=== PATIENT | male | born 1980 | race Caucasian/White ===

== ENCOUNTER 2018-10-03 03:43 | Emergency (ER) | payer OTHER ==
[~2018-10-03] VITALS: Ht 180.3 cm; Wt 108.9 kg
[~2018-10-03 03:43] MED LIST: HYDROCODONE-APA1 TA1 PO
[2018-10-03] MEDS ORDERED: FISH OIL 1,001000 M2 PO (03:53)
[2018-10-03] MEDS ORDERED: UNICOMPLEX M TA1 TA1 PO (03:53)
[2018-10-03] MEDS ORDERED: HYDROCHLOROTHIA25 M2 PO (03:53)
[2018-10-03] MEDS ORDERED: DIPHENHIST50 MG PO (04:01)
[2018-10-03] MEDS ORDERED: PREDNISONE50 MG PO (04:01)
[2018-10-03 04:09] VITALS: BP 161/101
== END 2018-10-03 04:09 | disposition home or self-care (01) ==
LOC: M.ERS 03:43
DX: T63.481A Toxic effect of venom of other arthropod, accidental (unintentional), initial encounter (principal); Z90.49 Acquired absence of other specified parts of digestive tract; Z90.89 Acquired absence of other organs; Z98.890 Other specified postprocedural states; Z91.013 Allergy to seafood; Y92.89 Other specified places as the place of occurrence of the external cause

== ENCOUNTER 2019-08-07 16:23 | Emergency (ER) | payer OTHER ==
[~2019-08-07] VITALS: Ht 180.3 cm; Wt 102.1 kg
[~2019-08-07 16:23] MED LIST changes: +DIPHENHIST50 MG PO; +FISH OIL 1,001000 M2 PO; +HYDROCHLOROTHIA25 M2 PO; +PREDNISONE50 MG PO; +UNICOMPLEX M TA1 TA1 PO
[2019-08-07] MEDS ORDERED: LISINOPRIL2.5 MG PO (16:41)
[2019-08-07 16:56] LABS: ABSOLUTE EOSINOPHILS 0.2 thou/uL (0.0-0.7); ABSOLUTE MONOCYTES 0.7 thou/uL (0.0-1.2); ABSOLUTE NEUTROPHILS 6.8 thou/uL (1.6-8.1); BASOPHILS 0.5 %; EOSINOPHILS 1.8 %; HEMATOCRIT 47.6 % (42.0-52.0); HEMOGLOBIN 16.6 gm/dL (14.0-18.0); LYMPHOCYTES 20.7 %; MCH 30.2 pg (26.0-34.0); MCHC 34.8 g/dL (28.0-37.0); MCV 86.6 fL (80.0-100.0); MPV 8.1 fl. (7.2-11.1); NUCLEATED RBCS 0 /100WBC; PLATELET COUNT* 338 thou/uL (150-400); RDW-CV 13.6 % (10.5-14.5); WBC 9.7 thou/uL (4.0-11.0)
[2019-08-07 17:14] LABS: CALCIUM 9.6 mg/dL (8.5-10.1); CREATININE 1.2 mg/dL (0.6-1.3); POTASSIUM 3.9 mmol/L (3.5-5.1)
[2019-08-07 17:23] LABS: TOTAL BILIRUBIN 0.7 mg/dL (<0.1-1.0); TOTAL PROTEIN 7.8 g/dL (6.4-8.2)
[2019-08-07 17:46] LABS: URINE BILIRUBIN NEGATIVE (Negative); URINE BLOOD NEGATIVE (Negative); URINE CLARITY CLEAR; URINE COLOR YELLOW; URINE GLUCOSE-RANDOM NEGATIVE (Negative); URINE KETONES NEGATIVE (Negative); URINE LEUKOCYTES-REFLEX NEGATIVE (Negative); URINE NITRITE-REFLEX NEGATIVE (Negative); URINE PROTEIN NEGATIVE (Negative); URINE UROBILINOGEN 0.2 E.U./dl (0.2-1.0)
[2019-08-07] MEDS ORDERED: ONDANSETRON ODT4 MG PO (18:52)
[2019-08-07] MEDS ORDERED: NORCO 5-325 TA1 EAC1 PO (18:52)
[2019-08-07 19:14] VITALS: BP 143/92
--- NOTE | 2019-08-08 10:15 | EKG ---
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 : 1980 Requested By: Ca Hutchins Order Number: [id number] MD: Silviano Quintero Measurements Intervals [place] Rate: 98 P: 49 ID: [id number] QRS: 24 QRSD: 90 T: 42 QT: 337 QTc: 431 Interpretive Statements Sinus rhythm with VPCs No previous ECG available for comparison Electronically Signed On 08-08-2019 10:14:57 CDT by Silviano Quintero [email or web address] <ELECTRONICALLY SIGNED> By: Angel Quintero MD, [facility] 08/08/19 [phone] [id number] Angel Quintero MD, [facility] /EPI
== END 2019-08-07 19:15 | disposition home or self-care (01) ==
LOC: M.ERS 16:23
PROVIDERS: Physician Assistant
DX: K85.90 Acute pancreatitis without necrosis or infection, unspecified (principal); R10.84 Generalized abdominal pain; Z91.013 Allergy to seafood; Z79.899 Other long term (current) drug therapy; Z90.49 Acquired absence of other specified parts of digestive tract; Z98.890 Other specified postprocedural states